=== PATIENT | male | born 1990 | race Hispanic/Latino ===

== ENCOUNTER 2025-05-24 13:52 | Emergency (ER) | payer SELFPAY ==
[2025-05-24 14:03] VITALS: BP 145/86
--- NOTE | 2025-05-24 16:39 | ED.GENMED ---
History of Present Illness
General
Chief Complaint: Skin Surface Trauma
Time Seen by Provider: 05/24/25 16:38
History of Present Illness
History of Present Illness:
FOCUSED PAST MEDICAL HISTORY
- The patient has no significant past medical history
REVIEW OF OLD RECORDS
- No old records available for review in [facility]
Note:
CHIEF COMPLAINT(S)
Laceration of the arm from broken glass approximately 24 hours ago.
HISTORY OF PRESENT ILLNESS
The patient is a 34-year-old male who presented to the emergency room with a laceration to the arm sustained from contact with broken glass. The incident occurred approximately last night. Initially, the patient was reluctant to seek medical
attention, but was persuaded to come to the emergency department this morning due to concerns raised by a family member. The wound was cleaned initially by the patient and again this morning. On examination, the laceration was approximately four
centimeters in length and extended down to the subcutaneous tissue, with possible minimal involvement of the muscle layer. The patient reported mild discomfort upon palpation of the site but denied any retained glass fragments. Additionally, the
patient was able to move his fingers through full range of motion without difficulty. Tetanus immunization was not up to date; the patient confirmed the last tetanus shot was more than ten years ago.
PAST MEDICAL AND SURIGICAL HISTORY
None reported.
PHYSICAL EXAM
General: Alert, no acute distress.
Skin: There is a 4 cm laceration over the dorsal aspect of the right hand on the ulnar side
Head: Normocephalic, atraumatic.
Neck: Supple, trachea midline.
Eye: Oral mucosa moist.
Cardiovascular: Normal peripheral perfusion, No edema.
Respiratory: Respirations are non-labored.
Gastrointestinal: Abdomen nondistended.
Back: Normal range of motion, Normal alignment.
Musculoskeletal: Normal range of motion, normal strength.
Neurological: Alert and oriented to person, place, time, and situation, no focal neurological deficit observed. Excellent function into flexion and extension at the affected digits
Psychiatric: Cooperative, appropriate mood & affect.
PLAN
1. Administer eight sutures to approximate the edges of the wound, given the separation of the tissue and potential depth involvement.
2. Update tetanus immunization as the patient is due for it.
3. Administer a single dose of intravenous antibiotics to prevent infection, followed by a course of oral cephalexin to continue prophylaxis against infection due to the delay in seeking care.
4. Apply a dressing to the wound site and provide instructions for care at home.
DIFFERENTIAL DIAGNOSIS
The differential diagnosis includes, in no particular order and is not limited to:
1. Laceration
2. Soft tissue infection (Cellulitis)
3. Foreign body retention within the wound
4. Superficial wound infection
5. Tendon injury
6. Muscle laceration
7. Nerve injury
8. Hematoma formation
9. Acute pain from trauma
10. Contusion
SUMMARY OF ENCOUNTER
The patient, a 34-year-old male, presented to the emergency department with a laceration to the arm from broken glass, sustained approximately 24 hours prior. Initially hesitant to seek care, the patient was brought in by the concern of a family
member. The laceration, about four centimeters long, extended down to the subcutaneous tissue with possible minimal muscle involvement. The treatment involved cleaning the wound, updating tetanus immunization, and administering antibiotics due to
the delayed presentation.
DISPOSITION
Discharge.
ASSESSMENT
Laceration of the arm with potential minimal muscle layer involvement, without retained foreign body.
EMERGENCY TREATMENTS ADMINISTERED
Intravenous antibiotics to prevent infection, tetanus immunization update.
PLAN
Eight sutures administered to approximate the wound edges, apply dressing and provide wound care instructions for home. Prescribe oral cephalexin to continue infection prophylaxis. Ensure tetanus immunization is up to date.
MEDICATION RECONCILIATION
Administered a single dose of intravenous antibiotics in the emergency department. Prescribed a course of cephalexin for oral administration.
MEDICAL DECISION MAKING
- Number and Complexity of Problems Addressed: Laceration with potential for soft tissue infection, need for tetanus immunization due to outdated status.
- Data:
Category 1: Wound meticulously examined to rule out foreign body retention.
- Risk: Prescription medication was prescribed with a consideration of infection risk due to delayed presentation.
DIAGNOSIS
1. Laceration of the right hand
2. Potential risk for soft tissue infection, T81.4XXA.
Phy Exam
Physical Exam
Physical Exam:
See HPI
Course
Orders/Labs/Results
Orders:
Orders
05/24/25 17:03
Cephalexin Monohydrate [Keflex] 500 mg PO NOW STA
Tetanus/Diphth/Acelpertussis [Adacel] 0.5 ml IM .ONCE ONE
Vital Signs
Initial and Last Documented VS:
Initial Vital Signs
Temp Pulse Resp BP Pulse Ox
36.9 C 55 18 145/86 100
05/24/25 14:03 05/24/25 14:03 05/24/25 14:03 05/24/25 14:03 05/24/25 14:03
Last Documented Vital Signs
Temp Pulse Resp BP Pulse Ox
36.9 C 55 18 145/86 100
05/24/25 14:03 05/24/25 14:03 05/24/25 14:03 05/24/25 14:03 05/24/25 16:40
Procedures
Laceration Closure
Right Dorsal Hand:
Status of Wound: clean
Description of Wound Edges: sharp
Preparation: cleaned with saline
Anesthesia: 1% Lidocaine
Revision/Debridement: routine- no revision
Wound exploration: explored to base- no FB
Type of Closure: single layer closure
Skin Closure Material: 4-0 prolene
Number of sutures: 8
*Pulse Oximetry
SaO2: 100
Oxygen Mode of Delivery: Room air
Patient hypoxic: no
*Critical Care Note
Total Time (30-74mins, 75-104mins- exclusive of procedures): Not Applicable
ED Attending Note
-
Portions of this chart may have been created with voice recognition software.� Occasional wrong word or��sound alike� substitutions may have occurred due to the inherent limitations of voice recognition software.
Discharge Plan
Departure
Patient Disposition: Home (Routine Discharge)
Date of Disposition: 05/24/25
Time of Disposition: 17:06
Patient with high blood pressure during this ER visit?: Yes
Discharge Problem:
Hand laceration
Instructions: Laceration Repair With Stitches (DC)
Prescriptions:
New
cephalexin 500 mg tablet
500 mg PO TID Qty: 6 0RF
Referrals:
NONE,* [Family Provider, Internal Medicine]
Activity Restrictions/Additional Instructions:
Have the stitches removed by your primary care doctor in 7 to 10 days. If you do not have a primary care doctor recommend you go to urgent care to have these removed. Return here if worse or other concerns. I am sending a prescription for a
couple days of an antibiotic to help prevent infection as the wound was not closed until the day after injury.
Discharge Date and Time
Print Language: [place]
== END 2025-05-24 17:43 | disposition home or self-care (01) ==
LOC: EMR 13:52
PROVIDERS: EMERGENCY PHYSICIAN Emergency Medicine
DX: S61.411A Laceration without foreign body of right hand, initial encounter (principal); W26.0XXA Contact with knife, initial encounter
CPT/HCPCS: 12001; 99283; 90715